=== PATIENT | male | born 1950 | race Caucasian/White ===

== ENCOUNTER 2016-11-02 06:42 | Day surgery (SDC) | payer OTHER ==
--- NOTE | 2016-10-30 14:51 | HP ---
HISTORY AND PHYSICAL: DATE OF ADMISSION/SURGERY: 11/02/16 DATE OF OFFICE VISIT: 10/30/16 SURGEON: Alejandra Granados MD (DICTATED BY POWER LINDO) PROCEDURE: Left knee arthroscopy with partial meniscectomy, possible chondroplasty, possible synovectomy. CHIEF COMPLAINT: Left knee pain. HISTORY OF PRESENT ILLNESS: Mr. Rogers is a 66-year-old gentleman with complaints of left knee pain. The MRI shows meniscus tear and he has elected to proceed with left knee arthroscopy with partial meniscectomy, possible chondroplasty, possible synovectomy. The surgery is scheduled for 11/02/[address] Granados. PAST MEDICAL HISTORY: Hypertension and high cholesterol. PAST SURGICAL HISTORY: Appendectomy and tonsillectomy. CURRENT MEDICATIONS: 1. Simvastatin. 2. Ramipril. 3. Hydrochlorothiazide. 4. Aspirin. 5. Fish oil. 6. Magnesium oxide. 7. Tylenol. ALLERGIES: No known drug allergies. FAMILY HISTORY: Heart disease and cancer. SOCIAL HISTORY: He is a 66-year-old gentleman. His lives with his . He does not smoke or use drugs. He uses occasional alcohol. REVIEW OF SYSTEMS: A complete 14-point review of systems was reviewed with the patient and was all negative or noncontributory. PHYSICAL EXAMINATION GENERAL: He is well developed, well nourished, in no acute distress. VITAL SIGNS: He stands 6 feet 2 inches tall, weighs 240 pounds. His blood pressure 193/99, his heart rate 75. HEENT: Normocephalic, atraumatic. NECK: Supple. No palpable lymph nodes. LUNGS: Clear to auscultation bilaterally. CARDIO: Regular rate and rhythm. Strong S1 and S2. ABDOMEN: Soft, nontender, and nondistended. MUSCULOSKELETAL: Left lower extremity, the skin is intact. There are no open wounds or abrasions. He has full range of motion of the left knee. He has some tenderness over the medial joint line. No varus or valgus instability. Negative Maday's. His lower extremity muscle group strengths are intact at 5/ 5. He has 2+ dorsalis pedis pulses. NEUROLOGIC: He is alert and oriented x3. Cranial nerves II through XII are intact. ASSESSMENT AND PLAN: Mr. Rogers is a 66-year-old gentleman with complaints of left knee pain. He has failed conservative management and has elected to proceed with left knee arthroscopy with partial meniscectomy, possible chondroplasty, possible synovectomy. The surgery is scheduled for 11/02/[address] Granados discussed the risks and the benefits of the surgery at today's visit and all of his questions were answered. He will see Dr. Granados back in 10 to 14 days after the surgery. POWER LINDO [id number]/[facility] #: [id number] MTDD
[~2016-11-02 06:42] MED LIST: Buffered Lidocaine 0.9% SYRIN* 5 ML/SYR SYRINGE INTRADERM ONE; Sodium Citrate/Citric Acid* 15 ML UDC PO ONE
[2016-11-02] MEDS ORDERED: Sodium Citrate/Citric Acid* 15 ML UDC ONE (06:45)
[2016-11-02] MEDS ORDERED: Buffered Lidocaine 0.9% SYRIN* 5 ML/SYR SYRINGE ONE (06:45)
[2016-11-02] MEDS ORDERED: ceFAZolin 2 GM PREMIX(*) 2 GM/50 ML BAG IVPB ONE (06:45)
[2016-11-02] MEDS ORDERED: EPINEPHrine AMP 1 MG/ML ONE (06:51)
[2016-11-02] MEDS ORDERED: methylPREDNISolone ACETATE 80* 80 MG/ML 1 ML VIAL ONE (06:51)
[2016-11-02] MEDS ORDERED: Bupivacaine 0.5% SDV PF* 30 ML VIAL ONE (06:52)
[2016-11-02] MEDS ORDERED: Chloroprocaine 2%* 20 ML VIAL ONE (07:58)
[2016-11-02] MEDS ORDERED: Midazolam* 1 MG/ML 5 ML VIAL (5 MG) ONE (07:58)
[2016-11-02] MEDS ORDERED: Ketorolac INJ* 30 MG/ML 1 ML VIAL IV PRN (08:02)
[2016-11-02] MEDS ORDERED: fentaNYL* 50 MCG/ML 2 ML VIAL (100 MCG VIAL) IV PRN (08:02)
[2016-11-02] MEDS ORDERED: Ondansetron INJ* 2 MG/ML VIAL IV PRN (08:02)
[2016-11-02] MEDS ORDERED: Ketorolac INJ* 30 MG/ML 1 ML VIAL ONE (09:52)
[2016-11-02] MEDS ORDERED: Ramipril CAP* 5 MG PO ONE (10:00)
[2016-11-02] MEDS ORDERED: oxyCODONE/Acetamin 5/325 MG* TAB ONE (10:05)
[2016-11-02] MEDS ORDERED: fentaNYL* 50 MCG/ML 2 ML VIAL (100 MCG VIAL) ONE (10:05)
[2016-11-02 10:40] VITALS: BP 152/83
--- NOTE | 2016-11-03 10:46 | OP ---
OPERATIVE REPORT: DATE OF OPERATION: 11/02/16 DATE OF : 54 SURGEON: Alejandra Granados MD PUBLIC INFORMATION COORDINATOR: POWER Carmen Ms. did help throughout the procedure with preparation of the leg, manipulation of instru ments, manipulation of the knee, and wound closure. ANESTHESIOLOGIST: Jack Mcclendon DO ANESTHESIA: Spinal. PRE-OP DIAGNOSES: Left knee pain with medial meniscal tear and osteoarthritis. POST-OP DIAGNOSES: Left knee pain with medial meniscal tear and osteoarthritis. OPERATIVE PROCEDURE: Left knee arthroscopy with partial medial meniscectomy and medial compartment chondroplasty. INDICATIONS: Mr. Rogers is a 66-year-old gentleman with several months of increasingly severe med ial joint line pain of his left knee. His history and physical exam were consistent with an MRI. T he MRI showed a medial meniscal tear. He failed conservative treatment and elected to undergo a left knee arthroscopy with partial medial meniscectomy and possible chondroplasty. Informed consent was obtained from the patient. He understood the risks of the surgery included but were not limited to bleeding, infection, damage to nearby structures, continued pain, need for further surgery, stroke, heart attack, blood clot, and . He wished to proceed. ESTIMATED BLOOD LOSS: Less than 25 cc. COMPLICATIONS: None. SPECIMEN: None. INTRAOPERATIVE FINDINGS: Intraoperatively, the patient was noted to have a large grade 3/4 Outerbri dge cartilage defect along the medial femoral condyle on the weightbearing portion with cartilage fl ap being associated. He also had a linear tear of the posterior 50% of the medial meniscus involvin g the white-red zone. Minimal degenerative changes in the patellofemoral compartment. DESCRIPTION OF PROCEDURE: Mr. Rogers is a 66-year-old gentleman identified in the preanesthesia u nit. His left lower extremity was marked as the correct operative side. Informed consent was gino d and placed in the chart. The patient was taken to the operating room and placed under spinal anes thesia. Left lower extremity was prepped and draped in the usual sterile fashion. Preop time-out w as made to correctly identify the patient's side and site. Appropriate perioperative antibiotics we re given within 1 hour of incision. A standard 0.5-cm anterolateral portal incision was made with a 15 blade and carried down through th e capsule. Trocar was introduced. As soon as the light and water sources were turned on, there was immediate visualization of the suprapatellar pouch. A tour of the knee joint was performed. No ab normalities were noted in the suprapatellar pouch or medial gutter. Patellofemoral compartment had some very minimal degenerative changes. Medial compartment had a large cartilage defect along the m edial femoral condyle with cartilage flapping. Posterior 50% of the medial meniscus had a complex-ty pe linear tear. ACL and PCL appeared to be intact. The knee was placed in a figure-of-4 position. There was no obvious lateral meniscal tear. No obvious lateral compartment degenerative changes. The lateral gutter had no obvious abnormality. Under direct visualization, a medial portal incision was made. Probe was introduced and the second tour of the knee joint was performed. The medial meniscal tear involved the posterior 50% of the briana dy. This was a complex-type tear with mainly a linear component. Straight biter and shaver were us ed to perform partial medial meniscectomy in the white-red zone. The smooth border was obtained wit h a shaver and radiofrequency ablation wand. Next, the radiofrequency ablation wand was used to smo oth any free cartilage flapping along the area of the medial femoral condyle. No further abnormalities were noted in the knee joint. The shaver was placed in the suprapatellar p ouch and the knee was copiously irrigated with 3 L of normal saline. All instruments were carefully removed. The incisions were closed using interrupted 3-0 nylon suture. An intraarticular injectio n of 80 mg of Depo-Medrol and 6 cc of 0.25% Marcaine was placed in the knee joint. Sterile Xeroform , 4x4s, and Webril were used to cover the incision. Rosendo wrap and cold pack was placed over this. The patient's anesthesia was reversed without difficulty. He was taken to the PACU in stable condit ion. Intended weight bearing will be weightbearing as tolerated. Intended DVT prophylaxis will be a spirin. He will follow up in 2 weeks' time for suture removal. [id number]/[facility] #: [id number]
== END 2016-11-02 10:55 | disposition home or self-care (01) ==
LOC: OR 06:42
PROVIDERS: ATTEND Orthopaedic Surgery Adult Reconstructive Orthopaedic Surgery
DX: M23.204 Derangement of unspecified medial meniscus due to old tear or injury, left knee (principal); M17.12 Unilateral primary osteoarthritis, left knee; Z79.82 Long term (current) use of aspirin; I10 Essential (primary) hypertension; E78.00 Pure hypercholesterolemia, unspecified; Z68.32 Body mass index [BMI] 32.0-32.9, adult
CPT/HCPCS: 36415; 85610; 85730; A9270-GY; J0171; J0690; J1040; J1885; J2250; J2400; J3010